=== PATIENT | female | born 1975 | race Caucasian/White ===

== ENCOUNTER 2020-03-01 16:01 | Inpatient (IN) | payer OTHER ==
[~2020-03-01] VITALS: Ht 172.7 cm; Wt 92.8 kg
[2020-03-01 19:44] LABS: Basophils # (auto) 0 10 ^3/uL (0-0.2); Basophils % (auto) 0.8 % (0.0-2.0); Eosinophils # (auto) 0 10 ^3/uL (0-0.8); Eosinophils % (auto) 0.1 % (0.0-7.0); Hematocrit 42.1 % (36.0-46.0); Hemoglobin 13.9 g/dL (12.2-16.2); Lymphocytes # (auto) 1.1 10 ^3/uL (0.4-5.4); Lymphocytes % (auto) 42.5 % (10.0-50.0); Mean Corpuscular Hemoglobin 30.1 pg (28.0-32.0); Mean Corpuscular Volume 91.2 fL (80.0-100.0); Monocytes # (auto) 0.3 10 ^3/uL (0-1.3); Neutrophils # (auto) 1.3 10 ^3/uL (1.6-8.6); Neutrophils % (auto) 46.6 % (37.0-80.0); Nucleated Red Blood Cells % 0.2 %; Platelet Count (auto) 143 10^3/uL (140-450); Red Blood Cells 4.61 10^6/uL (4.0-5.20); White Blood Cell 2.7 10^3/uL (4.4-10.8)
[2020-03-01 19:55] LABS: INR 0.98 (0.9-1.15); Partial Thromboplastin Time 29.7 sec (23.64-32.05)
[2020-03-01 19:59] LABS: Magnesium 1.9 mg/dL (1.6-2.6); Potassium 3.5 mmol/L (3.5-5.1)
[2020-03-01 20:10] LABS: Albumin 3.1 g/dL (3.4-5.0); BUN/Creatinine Ratio 11.4; Bilirubin, Total 0.3 mg/dL (0.2-1.0); CRP High Sensitivity 5.77 mg/dL (< 0.3); Calcium 8.9 mg/dL (8.5-10.1); Total Protein 7.1 g/dL (6.4-8.2)
[2020-03-01] MEDS ORDERED: LACTATED RINGER'S 1,000 ML IV ONE (21:00)
[2020-03-01] MEDS ORDERED: ENOXAPARIN SOD 100 MG/1 ML SYRINGE SC ONE (21:00)
[2020-03-01] MEDS ORDERED: AZITHROMYCIN 500MG/ 250ML 250 ML IV ONE (21:00)
[2020-03-01] MEDS ORDERED: SODIUM CHLORIDE 0.9% 1,000 ML IV SCH (21:04)
[2020-03-01] MEDS ORDERED: MORPHINE SULF INJ 2 MG/ML SYRINGE 1ML IV PRN (21:15)
[2020-03-01] MEDS ORDERED: ACETAMINOPHEN 500 MG TAB PO PRN (21:15)
[2020-03-01] MEDS ORDERED: NITROGLYCERIN 0.4 MG SL TAB SL PRN (21:15)
[2020-03-01 21:51] VITALS: BP 123/73
[2020-03-01] MEDS ORDERED: HYDROcodone-ACET 7.5/325MG TAB PO ONE (22:00)
[2020-03-01] MEDS: ALBUTEROL SULF HFA 90MCG INH 200DOSE IN SCH (22:05)
--- NOTE | 2020-03-01 22:50 | NUR ---
Telemetry admit from ER JACKELIN EVANS admitted to Telemetry unit after SBAR received. Patient oriented to DULCE MARIA WHITE RN primary RN, unit, room, bed, and unit policies regarding patient care and visiting hours. Patient now on continuous telemetry monitoring, tele box # 9 and telemetry reading on arrival to unit is Sinus Tach at 110BPM. Patient placed on bedside oxygen, weighed by bedscale and encouraged to call if they need something. All questions and concerns addressed, patient verbalized understanding.
[2020-03-01 23:55] VITALS: BP 125/78
[2020-03-02 00:09] VITALS: BP 125/78
[2020-03-02] MEDS: CHOLECALCIFEROL (VITD3) 1,000UNIT=25mCg TAB PO SCH ×2 (00:45→10:04)
[2020-03-02] MEDS: ASCORBIC ACID 1,000 MG TAB PO SCH ×2 (00:46→10:04)
[2020-03-02] MEDS: FAMOTIDINE 20 MG TAB PO SCH ×3 (00:46→21:33)
[2020-03-02] MEDS: ZINC SULFATE 220mg CAP or TAB PO SCH ×2 (00:48→10:04)
--- NOTE | 2020-03-02 02:00 | NUR ---
IV removal IV infiltrated, IV DC'd with sterile technique, catheter fully intact. Pressure dressing applied to site. Patient tolerated procedure well.
--- NOTE | 2020-03-02 02:30 | NUR ---
IV insertion IV access obtained, via clean sterile technique by inserting 22 gauge catheter at left forearm after first attempt. IV secured properly. No trauma to site. Patient tolerated procedure well.
[2020-03-02] MEDS: DOXYCYCLINE 100MG/250ML 250 ML IV SCH ×3 (02:45→21:32)
[2020-03-02] MEDS: ONDANSETRON HCL 4 MG/2 ML VIAL IV PRN (02:45)
[2020-03-02] MEDS ORDERED: HYDR-4833 PO (03:06)
[2020-03-02] MEDS ORDERED: OMEP20TA PO (03:06)
[2020-03-02] MEDS ORDERED: MELA3TAB27 PO (03:06)
[2020-03-02] MEDS ORDERED: BACL10TA PO (03:06)
[2020-03-02] MEDS ORDERED: HYDR12.56 PO (03:06)
[2020-03-02] MEDS ORDERED: CETI5CHW PO (03:06)
[2020-03-02] MEDS ORDERED: LEVO25TA6 PO (03:06)
[2020-03-02] MEDS ORDERED: POTA10TA51 PO (03:06)
[2020-03-02 05:00] VITALS: BP 118/67
--- NOTE | 2020-03-02 05:15 | NUR ---
Urine specimen sent to lab.
[2020-03-02 05:35] LABS: Urine Bacteria FEW /hpf (None Seen); Urine Blood Negative /uL (Negative); Urine Specific Gravity 1.005 (1.001-1.035); Urine WBC <1 /hpf (0 - 5)
[2020-03-02 06:57] LABS: Basophils # (auto) 0 10 ^3/uL (0-0.2); Basophils % (auto) 0.3 % (0.0-2.0); Eosinophils # (auto) 0 10 ^3/uL (0-0.8); Eosinophils % (auto) 0.2 % (0.0-7.0); Hematocrit 44.3 % (36.0-46.0); Hemoglobin 14.4 g/dL (12.2-16.2); Lymphocytes # (auto) 1.3 10 ^3/uL (0.4-5.4); Lymphocytes % (auto) 48.3 % (10.0-50.0); Mean Corpuscular Hgb Conc. 32.5 g/dL (32.0-36.0); Mean Corpuscular Volume 92.2 fL (80.0-100.0); Monocytes # (auto) 0.3 10 ^3/uL (0-1.3); Monocytes % (auto) 12.6 % (0.0-12.0); Neutrophils % (auto) 38.6 % (37.0-80.0); Nucleated Red Blood Cells % 0.1 %; Platelet Count (auto) 146 10^3/uL (140-450); Red Blood Cells 4.81 10^6/uL (4.0-5.20); Red Cell Distribution Width 14.4 % (11.8-14.3); White Blood Cell 2.7 10^3/uL (4.4-10.8)
--- NOTE | 2020-03-02 07:00 | NUR ---
IV insertion IV access obtained, via clean sterile technique by inserting 22 gauge catheter at right upper arm after first attempt. IV secured properly. No trauma to site. Patient tolerated procedure well.
--- NOTE | 2020-03-02 07:00 | NUR ---
Patient is c/o pain to left forearm IV. No redness or welling noted. Will d/c IV as soon as another IV is in place.
--- NOTE | 2020-03-02 07:10 | NUR ---
IV removal IV DC'd with sterile technique, catheter fully intact. Pressure dressing applied to site. Patient tolerated procedure well.
[2020-03-02 07:13] LABS: BUN/Creatinine Ratio 10.5; Calcium 8.1 mg/dL (8.5-10.1); Potassium 3.3 mmol/L (3.5-5.1)
[2020-03-02 07:16] LABS: Bilirubin, Total 0.2 mg/dL (0.2-1.0); Total Protein 7.1 g/dL (6.4-8.2)
--- NOTE | 2020-03-02 07:54 | NUR ---
SPOKE WITH DEBORA SENIOR UI UX DEVELOPER REGARDING PATIENT'S POTASSIUM LEVEL. NEW ORDERS RECEIVED.
[2020-03-02] MEDS ORDERED: POTASSIUM CHL 20 Meq TABLET PO ONE ×2 (08:00→11:15)
[2020-03-02] MEDS: ALBUTEROL SULF HFA 90MCG INH 200DOSE IN SCH ×2 (08:20→15:05)
[2020-03-02 08:50] VITALS: BP 114/69
[2020-03-02] MEDS: ENOXAPARIN SOD 40 MG/0.4 ML SYRINGE SC SCH (10:05)
[2020-03-02] MEDS ORDERED: methylPREDNISolone SOD SUCC 40 MG/ML VL IV ONE (11:15)
[2020-03-02] MEDS: traMADol HCL 50 MG TAB PO PRN (11:36)
--- NOTE | 2020-03-02 11:36 | NUR ---
MD ROUNDED ON PATIENT. NEW ORDERS ENTERED. PATIENT RELAYED TO MD THAT HER BACK AND NECK WERE HURTING. THIS MORNING SHE STATED PAIN WAS 8/10 AND REQUESTED MEDICATION. MAR UPDATED BY DR ORANTES, MEDICATION GIVEN ORDERED FOR PAIN.
[2020-03-02] MEDS ORDERED: BUDESONIDE (INHALATION) 0.5 MG/2 ML NEB NEB ONE (12:00)
[2020-03-02] MEDS: hydrOXYchloroQUINE SULFATE 200 MG TAB PO ONE ×2 (12:41→13:03)
[2020-03-02 13:00] VITALS: BP 108/71
--- NOTE | 2020-03-02 14:35 | NUR ---
SPOKE WITH DR. ORANTES ABOUT PATIENT'S PAIN. NEW ORDERS RECEIVED.
[2020-03-02] MEDS ORDERED: LIDOCAINE 5% TOPICAL PATCH TOP ONE (14:45)
[2020-03-02] MEDS: PULMICORT 180 MCG IN SCH (15:04)
[2020-03-02 16:50] VITALS: BP 122/80
--- NOTE | 2020-03-02 17:18 | NUR ---
1415 03/02/20 - Contacted [facility] at [phone], requesting authorization for continued inpatient stay. Spoke with Kentrell security assurance analyst who provided authorization [id number] for continued inpatient stay.
--- NOTE | 2020-03-02 19:30 | NUR ---
Opening Shift Note Received report from hamilton Garcia RN. Assumed care of patient, awake and alert. No S/S of distress/SOB or pain. On 3LCN saturating at 95%. SOB noted when patient ambulates to the bathroom. Instructed on POC and to call for assist PRN, will continue to monitor for changes Q1hr and PRN. Bed placed in lowest position and call light within reach.
[2020-03-02] MEDS: TEMAZEPAM 15 MG CAP PO PRN (21:33)
[2020-03-02] MEDS: methylPREDNISolone SOD SUCC 40 MG/ML VL IV SCH (21:33)
[2020-03-02] MEDS ORDERED: BUDESONIDE (INHALATION) 0.5 MG/2 ML NEB NEB SCH (22:00)
[2020-03-02 22:19] VITALS: BP 134/82
[2020-03-03] MEDS: ALBUTEROL SULF HFA 90MCG INH 200DOSE IN SCH ×4 (00:17→23:45)
[2020-03-03] MEDS: PULMICORT 180 MCG IN SCH ×3 (00:17→22:00)
[2020-03-03 04:56] VITALS: BP 121/67
--- NOTE | 2020-03-03 06:46 | NUR ---
ROUNDS Patient states "I slept like an adelso". Given Restoril last night as ordered. No distress noted, saturating at 93% on 3LNC. Patient denies pain.
[2020-03-03 06:59] LABS: Potassium 4.2 mmol/L (3.5-5.1)
[2020-03-03 07:23] LABS: Albumin 3.2 g/dL (3.4-5.0); Bilirubin, Total 0.2 mg/dL (0.2-1.0); Total Protein 8.1 g/dL (6.4-8.2)
[2020-03-03 09:21] VITALS: BP 111/76
[2020-03-03] MEDS: DOXYCYCLINE 100MG/250ML 250 ML IV SCH (10:30)
[2020-03-03] MEDS: ZINC SULFATE 220mg CAP or TAB PO SCH (10:30)
[2020-03-03] MEDS: methylPREDNISolone SOD SUCC 40 MG/ML VL IV SCH ×2 (10:30→21:31)
[2020-03-03] MEDS: ASCORBIC ACID 1,000 MG TAB PO SCH (10:31)
[2020-03-03] MEDS: LIDOCAINE 5% TOPICAL PATCH TOP SCH (10:31)
[2020-03-03] MEDS: ENOXAPARIN SOD 40 MG/0.4 ML SYRINGE SC SCH (10:31)
[2020-03-03] MEDS: FAMOTIDINE 20 MG TAB PO SCH ×2 (10:31→21:31)
[2020-03-03] MEDS: CHOLECALCIFEROL (VITD3) 1,000UNIT=25mCg TAB PO SCH (12:01)
[2020-03-03] MEDS: hydrOXYchloroQUINE SULFATE 200 MG TAB PO SCH (12:01)
[2020-03-03] MEDS: traMADol HCL 50 MG TAB PO PRN ×2 (12:10→18:40)
--- NOTE | 2020-03-03 12:10 | NUR ---
PATIENT REQUESTING PAIN MEDICATION FOR HER UPPER NECK AND BACK. PATIENT IS ALSO USING ALTERNATIVE TO MEDICATION WITH ICE PACKS. SHE'S QUOTING PAIN 02/26.
[2020-03-03 12:30] VITALS: BP 125/79
[2020-03-03] MEDS ORDERED: FUROSEMIDE 20 MG/2 ML VIAL IV ONE (13:15)
[2020-03-03] MEDS ORDERED: ACETAMINOPHEN 500 MG TAB PO PRN (13:15)
[2020-03-03] MEDS ORDERED: POTASSIUM CHL 20 Meq TABLET PO ONE (13:15)
--- NOTE | 2020-03-03 13:59 | NUR ---
1352 03/03/20 - Contacted [facility] at [phone], requesting authorization for continued inpatient stay. Spoke with knowledge analyst Es who confirmed receiving clinical notes that were faxed today. Es provided authorization [id number] for continued inpatient stay.
[2020-03-03] MEDS ORDERED: DULO60CA PO (15:25)
[2020-03-03 17:15] VITALS: BP 129/78
--- NOTE | 2020-03-03 18:30 | NUR ---
PATIENT INITIALLY REQUESTING BENADRYL FOR WHAT SHE STATES IS AN ALLERGIC REACTION TO [facility]OUGHT IN. PATIENT IS NOW REQUESTING TYLENOL FOR HEADACHE BUT IS DENYING ANY OTHER S/S. CALL WAS PUT OUT TO [facility] CLOSER HOSPITALIST FOR NEW ORDERS. WILL GIVE TYLENOL PER PT REQUEST AND ORDERED.
--- NOTE | 2020-03-03 19:20 | NUR ---
Opening Shift Note Received report from hamilton Garcia RN. Assumed care of patient, awake and alert. No S/S of distress/SOB or pain. On 3LCN saturating at 92%. SOB noted when patient ambulates to the bathroom. Instructed on POC and to call for assist PRN, will continue to monitor for changes Q1hr and PRN. Bed placed in lowest position and call light within reach.
[2020-03-03] MEDS: TEMAZEPAM 15 MG CAP PO PRN (21:32)
[2020-03-03 22:00] VITALS: BP 121/73
[2020-03-04 05:00] VITALS: BP 100/65
--- NOTE | 2020-03-04 07:09 | NUR ---
ROUNDS Patient is resting in bed with eyes closed, no distress noted and patient slept all night.
[2020-03-04 07:35] LABS: Albumin 3.1 g/dL (3.4-5.0); Calcium 9.4 mg/dL (8.5-10.1); Potassium 4.5 mmol/L (3.5-5.1)
[2020-03-04 07:38] LABS: BUN/Creatinine Ratio 12.6; Bilirubin, Total 0.3 mg/dL (0.2-1.0); Total Protein 7.9 g/dL (6.4-8.2)
[2020-03-04] MEDS: ALBUTEROL SULF HFA 90MCG INH 200DOSE IN SCH ×3 (08:18→22:50)
[2020-03-04] MEDS: PULMICORT 180 MCG IN SCH ×2 (08:18→22:55)
--- NOTE | 2020-03-04 08:18 | NUR ---
RT NOTE: RN WAS BEDSIDE DOING MORNING ASSESSMENT AND STATED HE WAS PLACING PT ONTO OXYMIZER DUE TO SPO2 BEING MID 80s. UPON ASSESSMENT PT WAS SOB WITH INCREASED WOB. PT STATED SHE HAD A COUGHING ATTACK THAT WAS REALLY PAINFUL AND THAT IT TAKES HER A LITTLE TIME TO CALM DOWN AND CATCH HER BREATH AFTER COUGHING. WAS ABLE TO BRING SPO2 UP TO 92 ON 10L OXYMIZER. RN STATED HE WAS GOING TO CONTACT MD TO GET COUGH MEDS. WILL CONTINUE TO MONITOR.
[2020-03-04 08:32] VITALS: BP 105/72
[2020-03-04] MEDS: methylPREDNISolone SOD SUCC 40 MG/ML VL IV SCH ×2 (10:48→21:23)
[2020-03-04] MEDS: ZINC SULFATE 220mg CAP or TAB PO SCH (10:48)
[2020-03-04] MEDS: hydrOXYchloroQUINE SULFATE 200 MG TAB PO SCH (10:48)
[2020-03-04] MEDS: ASCORBIC ACID 1,000 MG TAB PO SCH (10:48)
[2020-03-04] MEDS: FAMOTIDINE 20 MG TAB PO SCH ×2 (10:48→21:23)
[2020-03-04] MEDS: LIDOCAINE 5% TOPICAL PATCH TOP SCH (10:49)
[2020-03-04] MEDS: CHOLECALCIFEROL (VITD3) 1,000UNIT=25mCg TAB PO SCH (10:49)
[2020-03-04] MEDS: ENOXAPARIN SOD 40 MG/0.4 ML SYRINGE SC SCH (10:49)
--- NOTE | 2020-03-04 11:43 | NUR ---
Lenny ORANTES AT BEDSIDE. EXPLAINED PATIENTS EPISODE OF SOB THIS AM INFORMED OF PATIENTS CURRENT OXYGEN STATUS. INFORMED NEW ORDERS.
[2020-03-04] MEDS ORDERED: DULoxetine HCL 30 MG CAP PO ONE (12:00)
[2020-03-04] MEDS: Ensure HIGH Protein Chocolate 8oz Bottle PO SCH ×2 (12:00→18:05)
[2020-03-04] MEDS ORDERED: FUROSEMIDE 20 MG/2 ML VIAL IV ONE (12:00)
[2020-03-04] MEDS ORDERED: POTASSIUM CHL 20 Meq TABLET PO ONE (12:00)
[2020-03-04 12:24] VITALS: BP 112/89
[2020-03-04] MEDS: PROMETHAZINE W/CODEINE 5 ML ORAL SYRUP PO PRN ×2 (13:15→21:24)
--- NOTE | 2020-03-04 16:31 | NUR ---
1600 03/04/20 - Contacted [facility] at [phone] requesting authorization for continued inpatient stay and requesting hard copy of authorization for 03/03/20. Spoke with bi analyst Ciaran, who provided authorization [id number] for continued inpatient stay. Ciaran also stated the casework supervisor are very but he would leave a message with my request.
[2020-03-04 16:54] VITALS: BP 121/69
[2020-03-04] MEDS ORDERED: REMDESIVIR 200 MG in NS 210ml LOADING DOSE ADULT IV ONE (20:00)
--- NOTE | 2020-03-04 20:00 | NUR ---
Opening Shift Note Assumed care of patient, awake and alert. No S/S of distress/SOB or pain. Instructed on POC and to call for assist PRN, will continue to monitor for changes Q1hr and PRN.
--- NOTE | 2020-03-04 20:03 | NUR ---
HOSPITALIST KESHA PATIENT HAS ORDERS FOR REMDESVIR MEDICATION. PATIENT IS CONTRAINDICATED FOR MEDICATION DUE TO ELEVATED ALT AT 431 AND AST AT 246. MED NOT TO BE GIVEN PER PHARMACY IF AST IS 5 TIMES UPPER LIMIT. WILL AWAIT CALL BACK OR ORDERS. Addendum: 03/04/20 at 6700 by ALISSA MOONEY RN HOSPITALIST [facility]. OK TO HOLD REMDESEVIR AT THIS TIME.
[2020-03-04] MEDS: ENOXAPARIN SOD 100 MG/1 ML SYRINGE SC SCH (21:23)
[2020-03-04] MEDS: TEMAZEPAM 15 MG CAP PO PRN (21:24)
[2020-03-04 22:00] VITALS: BP 138/86
[2020-03-05] VITALS (7 sets, daily range): BP systolic 120–138; BP diastolic 76–88
[2020-03-05] MEDS: PROMETHAZINE W/CODEINE 5 ML ORAL SYRUP PO PRN (05:01)
[2020-03-05] MEDS: PULMICORT 180 MCG IN SCH ×2 (07:44→21:52)
[2020-03-05] MEDS: ALBUTEROL SULF HFA 90MCG INH 200DOSE IN SCH ×2 (07:44→22:00)
--- NOTE | 2020-03-05 07:48 | NUR ---
Opening Shift Note Assumed care of patient, awake and alert. No S/S of distress/SOB or pain. On 12L OXYMIZER saturating at 93%. Instructed on POC and to call for assist PRN, will continue to monitor for changes Q1hr and PRN. Bed placed in lowest position and call light within reach.
[2020-03-05 08:20] LABS: Basophils # (auto) 0 10 ^3/uL (0-0.2); Basophils % (auto) 0.1 % (0.0-2.0); Eosinophils # (auto) 0 10 ^3/uL (0-0.8); Hematocrit 43.8 % (36.0-46.0); Hemoglobin 14.2 g/dL (12.2-16.2); Lymphocytes # (auto) 0.8 10 ^3/uL (0.4-5.4); Lymphocytes % (auto) 7.6 % (10.0-50.0); Mean Corpuscular Hemoglobin 29.5 pg (28.0-32.0); Mean Corpuscular Hgb Conc. 32.5 g/dL (32.0-36.0); Mean Corpuscular Volume 90.7 fL (80.0-100.0); Monocytes # (auto) 0.9 10 ^3/uL (0-1.3); Monocytes % (auto) 8.4 % (0.0-12.0); Neutrophils # (auto) 9.3 10 ^3/uL (1.6-8.6); Neutrophils % (auto) 83.9 % (37.0-80.0); Platelet Count (auto) 251 10^3/uL (140-450); Red Blood Cells 4.83 10^6/uL (4.0-5.20); Red Cell Distribution Width 14.3 % (11.8-14.3); White Blood Cell 11.1 10^3/uL (4.4-10.8)
[2020-03-05 08:40] LABS: Albumin 2.9 g/dL (3.4-5.0); Calcium 9.2 mg/dL (8.5-10.1); Potassium 4.4 mmol/L (3.5-5.1)
[2020-03-05 08:45] LABS: BUN/Creatinine Ratio 17.6; Bilirubin, Total 0.3 mg/dL (0.2-1.0); Total Protein 7.7 g/dL (6.4-8.2)
[2020-03-05] MEDS: Ensure HIGH Protein Chocolate 8oz Bottle PO SCH (10:15)
[2020-03-05] MEDS: methylPREDNISolone SOD SUCC 40 MG/ML VL IV SCH ×2 (10:15→21:52)
[2020-03-05] MEDS: ZINC SULFATE 220mg CAP or TAB PO SCH (10:15)
[2020-03-05] MEDS: DULoxetine HCL 30 MG CAP PO SCH (10:16)
[2020-03-05] MEDS: LIDOCAINE 5% TOPICAL PATCH TOP SCH (10:16)
[2020-03-05] MEDS: ASCORBIC ACID 1,000 MG TAB PO SCH (10:16)
[2020-03-05] MEDS: CHOLECALCIFEROL (VITD3) 1,000UNIT=25mCg TAB PO SCH (10:16)
[2020-03-05] MEDS: ENOXAPARIN SOD 100 MG/1 ML SYRINGE SC SCH ×2 (10:16→21:53)
[2020-03-05] MEDS: FAMOTIDINE 20 MG TAB PO SCH ×2 (10:16→21:52)
[2020-03-05] MEDS: POTASSIUM CHL 20 Meq TABLET PO SCH (10:16)
[2020-03-05] MEDS: FUROSEMIDE 20 MG/2 ML VIAL IV SCH (10:51)
--- NOTE | 2020-03-05 11:00 | NUR ---
ROUNDING MD ORANTES AT BEDSIDE ALL QUESTIONS AND CONCERNS ADDRESSED AT THIS TIME.
[2020-03-05] MEDS ORDERED: REMDESIVIR 200 MG in NS 210ml LOADING DOSE ADULT IV ONE (11:15)
[2020-03-05] MEDS: traMADol HCL 50 MG TAB PO PRN (11:40)
--- NOTE | 2020-03-05 14:19 | NUR ---
Nutrition Assessment Notes Please refer to link for full assessment notes. Est Energy needs: 5288-2440 kcals (17-20 kcal/kgBW) Est Protein needs: 95-127 gms/day (1.5-2.0 gm/kgIBW) Will continue to monitor and reassess prn. Addendum: 03/05/20 at [address] Amended: Links added.
--- NOTE | 2020-03-05 19:15 | NUR ---
Opening Shift Note Assumed care of patient. Patient is awake, alert, and oriented X 4. No S/S of respiratory distress or pain noted or reported. respirations are regular and unlabored. On 12 LPM oxymizer with saturating at 94%. Bed in lowest position, brakes locked, side rails up X 2, call light within reach. Instructed on POC and to call for assistance as needed. Will continue to monitor for changes Q1hr and PRN.
[2020-03-05] MEDS ORDERED: ACETAMINOPHEN 650 mg PER 20 mL UD PO ONE (19:45)
[2020-03-05] MEDS ORDERED: diphenhdrAMINE HCL 50 MG/1 ML VL IV ONE (19:45)
[2020-03-05] MEDS ORDERED: methylPREDNISolone SOD SUCC 40 MG/ML VL IV ONE (19:45)
[2020-03-05] MEDS: TOCILIZUMAB 400 MG in SODIUM CHL 0.9% 80 ML IV SCH (20:39)
[2020-03-05] MEDS: TEMAZEPAM 15 MG CAP PO PRN (22:04)
[2020-03-06 05:00] VITALS: BP 135/91
[2020-03-06 05:30] LABS: Basophils # (auto) 0 10 ^3/uL (0-0.2); Basophils % (auto) 0.1 % (0.0-2.0); Eosinophils # (auto) 0 10 ^3/uL (0-0.8); Hemoglobin 14.5 g/dL (12.2-16.2); Lymphocytes # (auto) 0.8 10 ^3/uL (0.4-5.4); Lymphocytes % (auto) 12.2 % (10.0-50.0); Mean Corpuscular Hemoglobin 29.9 pg (28.0-32.0); Mean Corpuscular Hgb Conc. 32.9 g/dL (32.0-36.0); Mean Corpuscular Volume 90.8 fL (80.0-100.0); Monocytes # (auto) 0.6 10 ^3/uL (0-1.3); Monocytes % (auto) 8.2 % (0.0-12.0); Neutrophils # (auto) 5.5 10 ^3/uL (1.6-8.6); Neutrophils % (auto) 79.5 % (37.0-80.0); Nucleated Red Blood Cells % 0.1 %; Platelet Count (auto) 278 10^3/uL (140-450); Red Blood Cells 4.85 10^6/uL (4.0-5.20); Red Cell Distribution Width 14.1 % (11.8-14.3); White Blood Cell 6.9 10^3/uL (4.4-10.8)
[2020-03-06 05:53] LABS: Potassium 4.6 mmol/L (3.5-5.1)
[2020-03-06 06:03] LABS: Albumin 2.6 g/dL (3.4-5.0); BUN/Creatinine Ratio 19.7; Bilirubin, Total 0.3 mg/dL (0.2-1.0); Total Protein 7.3 g/dL (6.4-8.2)
[2020-03-06] MEDS: ALBUTEROL SULF HFA 90MCG INH 200DOSE IN SCH ×3 (06:12→23:17)
[2020-03-06] MEDS ORDERED: diphenhdrAMINE HCL 50 MG/1 ML VL IV ONE (07:45)
[2020-03-06] MEDS ORDERED: methylPREDNISolone SOD SUCC 40 MG/ML VL IV ONE (07:45)
[2020-03-06] MEDS ORDERED: ACETAMINOPHEN 650 mg PER 20 mL UD PO ONE (07:45)
--- NOTE | 2020-03-06 07:45 | NUR ---
OPENING NOTE ASSUMED CARE OF PT. PT ALERT AND ORIENTED. NO SOB/DISTRESS NOTED. BED SET TO LOWEST POSITION/LOCKED, BEDSIDE RAILS UP X2, CALL LIGHT WITHIN REACH, INSTRUCTED PATIENT TO CALL FOR ASSISTANCE. UPDATE ON POC. PATIENT VERBALIZED UNDERSTANDING. WILL CONTINUE TO MONITOR Q 1HR AND PRN.
[2020-03-06] MEDS: Ensure HIGH Protein Chocolate 8oz Bottle PO SCH ×3 (08:00→18:00)
[2020-03-06 09:00] VITALS: BP 122/81
[2020-03-06] MEDS: TOCILIZUMAB 400 MG in SODIUM CHL 0.9% 80 ML IV SCH (09:20)
[2020-03-06] MEDS: DULoxetine HCL 30 MG CAP PO SCH (09:21)
[2020-03-06] MEDS: FUROSEMIDE 20 MG/2 ML VIAL IV SCH (09:21)
[2020-03-06] MEDS: ZINC SULFATE 220mg CAP or TAB PO SCH (09:21)
[2020-03-06] MEDS: methylPREDNISolone SOD SUCC 40 MG/ML VL IV SCH ×2 (09:21→21:18)
[2020-03-06] MEDS: POTASSIUM CHL 20 Meq TABLET PO SCH (09:21)
[2020-03-06] MEDS: FAMOTIDINE 20 MG TAB PO SCH ×2 (09:22→21:18)
[2020-03-06] MEDS: ENOXAPARIN SOD 100 MG/1 ML SYRINGE SC SCH ×2 (09:22→21:18)
[2020-03-06] MEDS: LIDOCAINE 5% TOPICAL PATCH TOP SCH (09:22)
[2020-03-06] MEDS: ASCORBIC ACID 1,000 MG TAB PO SCH (09:22)
[2020-03-06] MEDS: CHOLECALCIFEROL (VITD3) 1,000UNIT=25mCg TAB PO SCH (09:22)
[2020-03-06 13:00] VITALS: BP 128/79
[2020-03-06] MEDS: PULMICORT 180 MCG IN SCH ×2 (16:02→23:17)
[2020-03-06 17:00] VITALS: BP 137/82
--- NOTE | 2020-03-06 19:30 | NUR ---
Opening Shift Note Assumed care of patient, awake and alert. No S/S of distress/SOB or pain. Insructed on POC and to callfor assist PRN, will continue to monitor for changes Q1hr and PRN. Fall and safety precautions in place. Call light within reach.
[2020-03-06] MEDS ORDERED: REMDESIVIR 100mg in NS 230ml DAILYx4DAYS (NO VENT) IV SCH (21:00)
[2020-03-06] MEDS: TEMAZEPAM 15 MG CAP PO PRN (21:18)
[2020-03-06 22:14] VITALS: BP 136/88
[2020-03-07 05:00] VITALS: BP 126/79
[2020-03-07 05:41] LABS: Basophils # (auto) 0 10 ^3/uL (0-0.2); Basophils % (auto) 0.2 % (0.0-2.0); Eosinophils # (auto) 0 10 ^3/uL (0-0.8); Hematocrit 44.3 % (36.0-46.0); Hemoglobin 14.8 g/dL (12.2-16.2); Lymphocytes # (auto) 1.2 10 ^3/uL (0.4-5.4); Lymphocytes % (auto) 14.2 % (10.0-50.0); Mean Corpuscular Hemoglobin 30.1 pg (28.0-32.0); Mean Corpuscular Hgb Conc. 33.4 g/dL (32.0-36.0); Mean Corpuscular Volume 90.1 fL (80.0-100.0); Monocytes # (auto) 0.7 10 ^3/uL (0-1.3); Monocytes % (auto) 8.9 % (0.0-12.0); Neutrophils # (auto) 6.2 10 ^3/uL (1.6-8.6); Neutrophils % (auto) 76.7 % (37.0-80.0); Platelet Count (auto) 325 10^3/uL (140-450); Red Blood Cells 4.92 10^6/uL (4.0-5.20); Red Cell Distribution Width 14.2 % (11.8-14.3); White Blood Cell 8.1 10^3/uL (4.4-10.8)
[2020-03-07 05:50] LABS: INR 1.03 (0.9-1.15)
[2020-03-07 05:52] LABS: Albumin 2.7 g/dL (3.4-5.0); Calcium 8.6 mg/dL (8.5-10.1); Potassium 4.5 mmol/L (3.5-5.1)
[2020-03-07 05:56] LABS: BUN/Creatinine Ratio 19.3; Bilirubin, Total 0.3 mg/dL (0.2-1.0); Total Protein 7.3 g/dL (6.4-8.2)
[2020-03-07] MEDS: ALBUTEROL SULF HFA 90MCG INH 200DOSE IN SCH ×3 (06:59→23:48)
[2020-03-07] MEDS: PULMICORT 180 MCG IN SCH ×2 (06:59→22:00)
[2020-03-07] MEDS: Ensure HIGH Protein Chocolate 8oz Bottle PO SCH ×3 (08:00→18:00)
[2020-03-07 08:56] VITALS: BP 139/92
[2020-03-07] MEDS: FUROSEMIDE 20 MG/2 ML VIAL IV SCH (09:24)
[2020-03-07] MEDS: methylPREDNISolone SOD SUCC 40 MG/ML VL IV SCH ×2 (09:24→22:29)
[2020-03-07] MEDS: ZINC SULFATE 220mg CAP or TAB PO SCH (09:24)
[2020-03-07] MEDS: DULoxetine HCL 30 MG CAP PO SCH (09:25)
[2020-03-07] MEDS: POTASSIUM CHL 20 Meq TABLET PO SCH (09:25)
[2020-03-07] MEDS: ASCORBIC ACID 1,000 MG TAB PO SCH (09:26)
[2020-03-07] MEDS: CHOLECALCIFEROL (VITD3) 1,000UNIT=25mCg TAB PO SCH (09:26)
[2020-03-07] MEDS: ENOXAPARIN SOD 100 MG/1 ML SYRINGE SC SCH ×2 (09:26→22:29)
[2020-03-07] MEDS: FAMOTIDINE 20 MG TAB PO SCH ×2 (09:26→22:29)
[2020-03-07] MEDS: LIDOCAINE 5% TOPICAL PATCH TOP SCH (09:27)
[2020-03-07 12:31] VITALS: BP 117/88
[2020-03-07] MEDS: ONDANSETRON HCL 4 MG/2 ML VIAL IV PRN (13:45)
[2020-03-07 17:00] VITALS: BP 129/84
[2020-03-07] MEDS ORDERED: DEXTROSE (50%) 50ML SYRG IV PRN (17:45)
--- NOTE | 2020-03-07 19:21 | NUR ---
Opening Shift Note Assumed care of patient, awake, alert and oriented x4, on 12L of oxygen via oxymizer with even and unlabored respirations, no S/S of distress/SOB or pain. Patient able to turn in bed independently, bed in lowest locked position, side rails up x2, and call light within reach. Instructed on POC and to call for assist PRN, will continue to monitor for changes Q1hr and PRN.
[2020-03-07] MEDS: ACCU-CHEK COMFORT CURVE STRIP VI SCH (22:29)
[2020-03-07] MEDS: InsuLIN REG 1unit/0.01ml Soln (100units/ml) SC SCH (22:32)
[2020-03-07] MEDS: TEMAZEPAM 15 MG CAP PO PRN (22:35)
[2020-03-07 23:27] VITALS: BP 125/85
[2020-03-08 03:53] VITALS: BP 125/85
[2020-03-08 05:38] VITALS: BP 120/78
[2020-03-08] MEDS: ACCU-CHEK COMFORT CURVE STRIP VI SCH ×4 (06:42→21:36)
[2020-03-08] MEDS: InsuLIN REG 1unit/0.01ml Soln (100units/ml) SC SCH ×4 (06:46→21:37)
[2020-03-08] MEDS: PULMICORT 180 MCG IN SCH ×2 (07:35→22:55)
[2020-03-08] MEDS: ONDANSETRON HCL 4 MG/2 ML VIAL IV PRN (08:22)
[2020-03-08] MEDS: Ensure HIGH Protein Chocolate 8oz Bottle PO SCH ×2 (08:28→12:00)
[2020-03-08 08:37] LABS: Basophils # (auto) 0 10 ^3/uL (0-0.2); Basophils % (auto) 0.2 % (0.0-2.0); Eosinophils # (auto) 0 10 ^3/uL (0-0.8); Hematocrit 46.1 % (36.0-46.0); Hemoglobin 14.8 g/dL (12.2-16.2); Lymphocytes # (auto) 1.3 10 ^3/uL (0.4-5.4); Mean Corpuscular Hemoglobin 29.4 pg (28.0-32.0); Mean Corpuscular Hgb Conc. 32.2 g/dL (32.0-36.0); Mean Corpuscular Volume 91.4 fL (80.0-100.0); Monocytes # (auto) 0.6 10 ^3/uL (0-1.3); Monocytes % (auto) 9.4 % (0.0-12.0); Neutrophils # (auto) 4.8 10 ^3/uL (1.6-8.6); Neutrophils % (auto) 71.4 % (37.0-80.0); Platelet Count (auto) 330 10^3/uL (140-450); Red Blood Cells 5.04 10^6/uL (4.0-5.20); Red Cell Distribution Width 14.2 % (11.8-14.3); White Blood Cell 6.7 10^3/uL (4.4-10.8)
[2020-03-08] MEDS: ALBUTEROL SULF HFA 90MCG INH 200DOSE IN SCH ×3 (08:51→22:55)
[2020-03-08 09:00] VITALS: BP 123/80
[2020-03-08 09:02] LABS: Albumin 2.6 g/dL (3.4-5.0); Calcium 8.4 mg/dL (8.5-10.1); Potassium 4.6 mmol/L (3.5-5.1)
[2020-03-08 09:05] LABS: BUN/Creatinine Ratio 21.8; Bilirubin, Total 0.4 mg/dL (0.2-1.0); Total Protein 6.9 g/dL (6.4-8.2)
[2020-03-08] MEDS: POTASSIUM CHL 20 Meq TABLET PO SCH (10:00)
[2020-03-08] MEDS: CHOLECALCIFEROL (VITD3) 1,000UNIT=25mCg TAB PO SCH (10:00)
[2020-03-08] MEDS: DULoxetine HCL 30 MG CAP PO SCH (10:00)
[2020-03-08] MEDS: FAMOTIDINE 20 MG TAB PO SCH ×2 (10:00→21:36)
[2020-03-08] MEDS: LIDOCAINE 5% TOPICAL PATCH TOP SCH (10:00)
[2020-03-08] MEDS: ZINC SULFATE 220mg CAP or TAB PO SCH (10:00)
[2020-03-08] MEDS: methylPREDNISolone SOD SUCC 40 MG/ML VL IV SCH ×2 (10:00→21:36)
[2020-03-08] MEDS: ENOXAPARIN SOD 100 MG/1 ML SYRINGE SC SCH ×2 (10:00→21:36)
[2020-03-08] MEDS: ASCORBIC ACID 1,000 MG TAB PO SCH (10:00)
[2020-03-08] MEDS ORDERED: FUROSEMIDE 20 MG/2 ML VIAL IV ONE (11:30)
[2020-03-08 13:00] VITALS: BP 115/79
--- NOTE | 2020-03-08 13:43 | NUR ---
ENDORSED CARE TO JULIO COLEMAN.
--- NOTE | 2020-03-08 13:44 | NUR ---
Assumed care of patient Patient sitting at side of bed with even and unlabored respirations, no distress noted. Call light within reach.
--- NOTE | 2020-03-08 14:33 | NUR ---
Nutrition Followup Notes Wt: 92.1 kg Unable to speak to pt d/t pt is positive for COVID. Pt is currently on regular diet with adequate PO of 75% x 4 per RN doc. Will continue to monitor PO status, skin status, pertinent labs and weight trends. Will f/u in 3-5 days. Est Energy needs: 4465-8882 kcals (17-20 kcal/kgBW), Est Protein needs: 95-127 gms/day (1.5-2.0 gm/kgIBW). Will continue to monitor and reassess prn. LABS: GLU 145 H, CA 8.4 L, ALB 2.6 L. GI: Pt had 2 BM yesterday per RN doc. BS: 20 low risk. Refer to wound assessment report for full details. PES: 1) Obesity aeb 147% IBW and BMI of 31.4 kg/m2 r/t energy intake in escess of energy needs 2) Altered nutrition related lab values aeb hyperglycemia, elev LFTs, mod hypoalbuminemia r/t current medical condition Comments 1) Continue to closely monitor pt PO intake to meet at least 75% of meals. 2) Continue current plan of care
--- NOTE | 2020-03-08 15:55 | NUR ---
Dressing changed to the IV located in the RWR. Dressing changed with aseptic technique. IV patent with no leaking, redness, or swelling noted. IV secured and IV education provided. Patient verbalized understanding. Call light within reach.
--- NOTE | 2020-03-08 16:08 | NUR ---
RE: Intervention Patient resting in bed and does not want to get OOB to a chair. Education provided. Patient verbalized understanding. Addendum: 03/08/20 at 1609 by Sandra Hough RN Amended: Links added.
[2020-03-08 17:26] VITALS: BP 130/84
--- NOTE | 2020-03-08 18:05 | NUR ---
Pulse ox 80% after ambulating to restroom patient notified staff member that she was removing Oxymizer and ambulating to and from restroom. Pulse ox assessed after she returned to restroom. Pulse ox 80%. Patient placed back on 8 LPM Oxymizer and instructed on deep breathing technique. Patient demonstrated properly. Pulse ox increased to 91%. Instructed patient to remain using BSC due to low pulse ox on room air. Patient verbalized understanding. Call light within reach.
--- NOTE | 2020-03-08 18:36 | NUR ---
Closing note Patient resting in bed in semi-fowlers position with even and unlabored respirations on 8 LPM Oxymizer, no distress noted. Fall precautions in place with call light within reach. BSC at bedside.
--- NOTE | 2020-03-08 19:18 | NUR ---
Opening Shift Note Assumed care of patient, awake, and alert oriented x4, on 12L of oxygen via oxymizer with even and unlabored respirations, no S/S of distress/SOB or pain. Patient able to turn independently, bed in lowest locked position, side rails up x2, and call light within reach. Instructed on POC and to call for assist PRN, will continue to monitor for changes Q1hr and PRN.
[2020-03-08] MEDS: TEMAZEPAM 15 MG CAP PO PRN (21:37)
[2020-03-08 22:00] VITALS: BP 113/77
[2020-03-09 05:00] VITALS: BP 107/75
[2020-03-09] MEDS: ACCU-CHEK COMFORT CURVE STRIP VI SCH ×4 (06:45→21:49)
[2020-03-09] MEDS: InsuLIN REG 1unit/0.01ml Soln (100units/ml) SC SCH ×4 (06:46→21:55)
[2020-03-09] MEDS: PULMICORT 180 MCG IN SCH (07:42)
[2020-03-09] MEDS: Ensure HIGH Protein Chocolate 8oz Bottle PO SCH ×3 (08:00→18:00)
[2020-03-09] MEDS: ONDANSETRON HCL 4 MG/2 ML VIAL IV PRN (08:39)
[2020-03-09 09:00] VITALS: BP 106/73
[2020-03-09 09:19] LABS: Calcium 8.9 mg/dL (8.5-10.1); Potassium 4.3 mmol/L (3.5-5.1)
[2020-03-09 09:25] LABS: Albumin 2.9 g/dL (3.4-5.0); Bilirubin, Total 0.4 mg/dL (0.2-1.0); Total Protein 7.1 g/dL (6.4-8.2)
[2020-03-09] MEDS: methylPREDNISolone SOD SUCC 40 MG/ML VL IV SCH (10:29)
[2020-03-09] MEDS: DULoxetine HCL 30 MG CAP PO SCH (10:29)
[2020-03-09] MEDS: FUROSEMIDE 20 MG/2 ML VIAL IV SCH (10:29)
[2020-03-09] MEDS: ZINC SULFATE 220mg CAP or TAB PO SCH (10:29)
[2020-03-09] MEDS: POTASSIUM CHL 20 Meq TABLET PO SCH (10:30)
[2020-03-09] MEDS: ASCORBIC ACID 1,000 MG TAB PO SCH (10:30)
[2020-03-09] MEDS: FAMOTIDINE 20 MG TAB PO SCH ×2 (10:30→21:48)
[2020-03-09] MEDS: LIDOCAINE 5% TOPICAL PATCH TOP SCH (10:31)
[2020-03-09] MEDS: CHOLECALCIFEROL (VITD3) 1,000UNIT=25mCg TAB PO SCH (10:31)
[2020-03-09] MEDS: ENOXAPARIN SOD 100 MG/1 ML SYRINGE SC SCH (10:31)
[2020-03-09] MEDS: ALBUTEROL SULF HFA 90MCG INH 200DOSE IN SCH ×2 (11:38→16:23)
[2020-03-09 13:00] VITALS: BP 124/90
--- NOTE | 2020-03-09 16:35 | NUR ---
assessment Patient is a 44 year old female who is alert and oriented and Covid positive. Patients cognitive abilities are intact. Prior to admission patient lived home with family and functioned independently. Patient informed me she is able to care for her own ADLs. Per patient she will return home to her prior living arrangements post discharge and family will transport her home. Patient informed me her PCP is Dr Mclaughlin at the [facility]. 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 Patient is on 3L oxygen today. Patient may need oxygen on discharge. I will continue to monitor and follow up as appropriate. I informed patient she has a right to speak to a oncology social work regarding all care. I informed patient she has a right to participate in any and all discharge planning. Patient does not have a POA and advanced directive. I have offered patient information on POA and advanced directives. I informed the patient the advantages and benefits of having an Advanced Directive. Patient verbalized understanding and agreed to discharge plan. Addendum: 03/09/20 at 1638 by Olivia FALLON Amended: Links added.
[2020-03-09 16:53] VITALS: BP 129/85
--- NOTE | 2020-03-09 19:25 | NUR ---
OPENING SHIFT NOTE Assumed care of patient who is A&O x4. Currently on 3L NC with no s/s of distress. Reports headache at this time. Provided ice per request. PIV in right forearm intact and patent. Flushed with 10ml NS. Patient is ambulatory without the use of assistive devices. Noted desaturation to high 80s with ambulation. Bed is in low locked position with side rails up x2. Call light is within reach and patient encouraged to call for assistance when needed. Will continue to monitor for changes PRN.
[2020-03-09 20:00] VITALS: BP 119/82
[2020-03-09] MEDS: TEMAZEPAM 15 MG CAP PO PRN (21:55)
[2020-03-09 22:00] VITALS: BP 119/82
[2020-03-10] MEDS: ALBUTEROL SULF HFA 90MCG INH 200DOSE IN SCH ×4 (00:22→23:20)
[2020-03-10] MEDS: PULMICORT 180 MCG IN SCH ×3 (00:22→22:00)
[2020-03-10 05:00] VITALS: BP 98/65
[2020-03-10] MEDS: ACCU-CHEK COMFORT CURVE STRIP VI SCH ×4 (06:14→22:05)
[2020-03-10] MEDS: InsuLIN REG 1unit/0.01ml Soln (100units/ml) SC SCH ×4 (06:15→22:15)
[2020-03-10] MEDS: ONDANSETRON HCL 4 MG/2 ML VIAL IV PRN (06:26)
--- NOTE | 2020-03-10 07:40 | NUR ---
Opening Shift Note Assumed care of patient, awake and alert. No S/S of distress, SOB with activity, reports nausea, denies pain. Instructed on POC and to call for assist PRN, will continue to monitor for changes Q1hr and PRN.
[2020-03-10 08:17] VITALS: BP 90/62
[2020-03-10] MEDS: Ensure HIGH Protein Chocolate 8oz Bottle PO SCH ×3 (10:43→18:00)
[2020-03-10] MEDS: FUROSEMIDE 20 MG/2 ML VIAL IV SCH (10:44)
[2020-03-10] MEDS: DULoxetine HCL 30 MG CAP PO SCH (10:44)
[2020-03-10] MEDS: predniSONE 20 MG TAB PO SCH (10:44)
[2020-03-10] MEDS: ZINC SULFATE 220mg CAP or TAB PO SCH (10:44)
[2020-03-10] MEDS: CHOLECALCIFEROL (VITD3) 1,000UNIT=25mCg TAB PO SCH (10:45)
[2020-03-10] MEDS: LIDOCAINE 5% TOPICAL PATCH TOP SCH (10:45)
[2020-03-10] MEDS: FAMOTIDINE 20 MG TAB PO SCH ×2 (10:45→22:05)
[2020-03-10] MEDS: ENOXAPARIN SOD 40 MG/0.4 ML SYRINGE SC SCH (10:45)
[2020-03-10] MEDS: ASCORBIC ACID 1,000 MG TAB PO SCH (10:46)
[2020-03-10] MEDS: POTASSIUM CHL 20 Meq TABLET PO SCH (10:46)
[2020-03-10 11:36] VITALS: BP 94/65
[2020-03-10 12:37] VITALS: BP 115/77
--- NOTE | 2020-03-10 13:51 | NUR ---
1145 03/10/20 Faxed to [facility] at [phone] face sheet, order for home oxygen at 3 liters. via [place], requesting authorization. Pending review and authorization.
--- NOTE | 2020-03-10 16:03 | NUR ---
1535 03/10/20 - Contacted [facility] at [phone], requesting authorization for continued inpatient stay and update on pending DME. Spoke with sales enablement analyst Carline who stated the upper caser Alice had reviewed the DME request and sent it on to the DME department. She could not provide time frame for delivery to patient. Carline did provide authorization [id number] for continued inpatient stay.
[2020-03-10 16:28] VITALS: BP 103/59
--- NOTE | 2020-03-10 19:50 | NUR ---
Opening Shift Note Assumed care of patient, awake and alert. No S/S of distress or pain. Patient is on 3L NC. POC discussed and questions answered. Bed is locked in lowest position with side rails up x2 for safety. Call light is within reach and encouraged to call for assist PRN, will continue to monitor for changes Q1hr and PRN.
[2020-03-10] MEDS: TEMAZEPAM 15 MG CAP PO PRN (21:02)
[2020-03-10 22:00] VITALS: BP 139/85
--- NOTE | 2020-03-10 22:00 | NUR ---
IV removal Patient complained IV is bothering her and would like it out.IV DC'd with clean sterile technique, catheter fully intact. Pressure dressing applied to site. Patient tolerated well. Patient states "I would prefer not to have another IV placed since I will be going home tomorrow." Patient verbalized understanding risk and benefits of having an IV. Will continue to monitor.
[2020-03-11 01:24] VITALS: BP 139/85
[2020-03-11 05:00] VITALS: BP 107/50
[2020-03-11] MEDS: ACCU-CHEK COMFORT CURVE STRIP VI SCH ×3 (06:44→17:25)
[2020-03-11] MEDS: InsuLIN REG 1unit/0.01ml Soln (100units/ml) SC SCH ×3 (06:44→17:26)
[2020-03-11] MEDS: Ensure HIGH Protein Chocolate 8oz Bottle PO SCH ×3 (08:00→18:00)
[2020-03-11 08:48] VITALS: BP 96/65
--- NOTE | 2020-03-11 08:52 | NUR ---
SPOKE WITH DERRICK ENGINEER: SPOKE WITH MAURICE DERRICK ENGINEER STATED SHE WOULD CALL [facility] FOR UPDATE. AWAITING CALL BACK.
[2020-03-11] MEDS: PULMICORT 180 MCG IN SCH (09:40)
[2020-03-11] MEDS: ALBUTEROL SULF HFA 90MCG INH 200DOSE IN SCH ×2 (09:40→15:35)
--- NOTE | 2020-03-11 09:40 | NUR ---
INCREASED 02 TO 4LPM AT THIS TIME DUE TO LOW SATURATION OF 87% ON 3LPM. PT. WAS COUGHING. Addendum: 03/11/20 at 0946 by Stormy Alonso RT Amended: Links added.
[2020-03-11] MEDS ORDERED: FUROSEMIDE 40 MG TAB PO SCH (10:00)
[2020-03-11] MEDS: predniSONE 20 MG TAB PO SCH (10:15)
[2020-03-11] MEDS: FAMOTIDINE 20 MG TAB PO SCH (10:16)
[2020-03-11] MEDS: DULoxetine HCL 30 MG CAP PO SCH (10:16)
[2020-03-11] MEDS: POTASSIUM CHL 20 Meq TABLET PO SCH (10:16)
[2020-03-11] MEDS: ZINC SULFATE 220mg CAP or TAB PO SCH (10:16)
[2020-03-11] MEDS: CHOLECALCIFEROL (VITD3) 1,000UNIT=25mCg TAB PO SCH (10:17)
[2020-03-11] MEDS: ASCORBIC ACID 1,000 MG TAB PO SCH (10:17)
[2020-03-11] MEDS: LIDOCAINE 5% TOPICAL PATCH TOP SCH (10:18)
[2020-03-11] MEDS: ENOXAPARIN SOD 40 MG/0.4 ML SYRINGE SC SCH (10:18)
--- NOTE | 2020-03-11 11:29 | NUR ---
re-assessment Per consult dc planning today. Patient will return home with family and will need home oxygen. MD order was sent to [facility] by case hardener Pamella. Addendum: 03/11/20 at 1132 by Olivia Roberto Amended: Links added.
[2020-03-11 12:51] VITALS: BP 100/72
--- NOTE | 2020-03-11 13:54 | NUR ---
Nutrition Followup Notes Wt: 92.8 kg Unable to speak to pt d/t pt is positive for COVID. Pt is currently on regular diet with adequate PO of 81% from 03/07-03/08 per RN doc. Pt po not recorded since 03/08. Will continue to monitor PO status, skin status, pertinent labs and weight trends. Will f/u in 3-5 days. Est Energy needs: 5761-4718 kcals (17-20 kcal/kgBW), Est Protein needs: 95-127 gms/day (1.5-2.0 gm/kgIBW). Will continue to monitor and reassess prn. LABS: G:IC 200H, BUN 19H, Alb 2.9L GI: Pt had 1 BM 03/11 per RN doc. BS: 20 low risk. Refer to wound assessment report for full details. PES: 1) Obesity aeb 147% IBW and BMI of 31.4 kg/m2 r/t energy intake in escess of energy needs 2) Altered nutrition related lab values aeb hyperglycemia, elev LFTs, mod hypoalbuminemia r/t current medical condition Comments 1) Continue to closely monitor pt PO intake to meet at least 75% of meals. 2) Continue current plan of care f/u mod 3-5 days
--- NOTE | 2020-03-11 15:38 | NUR ---
1530 03/11/20 - Received call from [employer] collections analyst who stated patient's O2 sat must be below 90% on room air to qualify for home O2. I provided infor and collections analyst stated home oxygen would be delivered in the next 2-3 hours.
[2020-03-11 16:49] VITALS: BP 126/72
--- NOTE | 2020-03-11 18:41 | NUR ---
per Coy MATRINEZ, oxygen will be here at 8:30pm.
--- NOTE | 2020-03-11 19:19 | NUR ---
PER PATIENT, WILL BRING HOME CONCENTRATOR TO DISCHARGE PATIENT HOME.
--- NOTE | 2020-03-11 19:55 | NUR ---
PATIENT DISCHARGED PER PROTOCOL. NO S/S OF DISTRESS NOTED.
== END 2020-03-11 19:40 | disposition home or self-care (01) | DRG 871 ==
LOC: EDBD 16:01 → ER 16:01 → TELE 16:02 → TELE-EAST 22:35
PROVIDERS: ADMIT Nurse Practitioner; ATTEND Internal Medicine
DX: A41.9 Sepsis, unspecified organism (principal); J12.89 Other viral pneumonia; J96.01 Acute respiratory failure with hypoxia; U07.1 COVID-19; D70.9 Neutropenia, unspecified; E66.9 Obesity, unspecified; G89.29 Other chronic pain; I10 Essential (primary) hypertension; K72.90 Hepatic failure, unspecified without coma; R74.0 Nonspecific elevation of levels of transaminase and lactic acid dehydrogenase [LDH]; Z68.31 Body mass index [BMI] 31.0-31.9, adult; Z79.899 Other long term (current) drug therapy
CPT/HCPCS: 36415; 36600; 71045; 80053; 81001; 81025; 82728; 82805; 82962; 83036; 83605; 83615; 83735; 84443; 85025; 85379; 85610; 85730; 86141; 94640; 96361; 96365; 96375; G0378; J1815; J2405; J3490

== ENCOUNTER 2022-10-27 08:03 | Emergency (ER) | payer BC, OTHER ==
[~2022-10-27] VITALS: Ht 172.7 cm; Wt 86.0 kg
[~2022-10-27 08:03] MED LIST: BACL10TA PO; CETI5CHW PO; DULO60CA PO; HYDR-4833 PO; HYDR12.56 PO; LEVO25TA6 PO; MELA3TAB27 PO; OMEP20TA PO; POTA10TA51 PO
[2022-10-27 09:07] LABS: Urine Bacteria NONE SEEN /hpf (None Seen); Urine Blood Negative /uL (Negative); Urine Specific Gravity 1.017 (1.001-1.035); Urine WBC 3 /hpf (0 - 5)
[2022-10-27 09:19] LABS: Basophils # (auto) 0 10 ^3/uL (0-0.2); Basophils % (auto) 0.4 % (0.0-2.0); Eosinophils # (auto) 0.1 10 ^3/uL (0-0.8); Eosinophils % (auto) 1.4 % (0.0-7.0); Hematocrit 43.4 % (36.0-46.0); Hemoglobin 14.4 g/dL (12.2-16.2); Lymphocytes # (auto) 1.9 10 ^3/uL (0.4-5.4); Lymphocytes % (auto) 29.7 % (10.0-50.0); Mean Corpuscular Hemoglobin 30.3 pg (28.0-32.0); Mean Corpuscular Volume 91.6 fL (80.0-100.0); Monocytes # (auto) 0.6 10 ^3/uL (0-1.3); Monocytes % (auto) 9.9 % (0.0-12.0); Neutrophils # (auto) 3.7 10 ^3/uL (1.6-8.6); Neutrophils % (auto) 58.6 % (37.0-80.0); Nucleated Red Blood Cells % 0.1 %; Red Blood Cells 4.74 10^6/uL (4.0-5.20); Red Cell Distribution Width 12.6 % (11.8-14.3); White Blood Cell 6.4 10^3/uL (4.4-10.8)
[2022-10-27 09:55] LABS: Albumin 3.8 g/dL (3.4-5.0); BUN/Creatinine Ratio 16.9; Bilirubin, Total 0.4 mg/dL (0.2-1.0); Calcium 8.9 mg/dL (8.5-10.1); Potassium 3.6 mmol/L (3.5-5.1); Total Protein 7.4 g/dL (6.4-8.2)
[2022-10-27 11:14] VITALS: BP 134/91
[2022-10-27] MEDS ORDERED: ONDA-144 PO (11:19)
== END 2022-10-27 11:26 | disposition home or self-care (01) ==
LOC: ER 08:03
DX: R10.11 Right upper quadrant pain (principal); N20.0 Calculus of kidney; I10 Essential (primary) hypertension; Z98.890 Other specified postprocedural states; Z79.899 Other long term (current) drug therapy; Z88.1 Allergy status to other antibiotic agents
CPT/HCPCS: 36415; 74176; 80053; 81001; 82150; 83690; 85025